=== PATIENT | male | born 1985 | race Caucasian/White ===

== ENCOUNTER 2017-11-27 19:57 | Observation (INO) | payer OTHER ==
[2017-11-27] MEDS ORDERED: ACETAMINOPHEN 500 MG TAB PO PRN (21:17)
[2017-11-27] MEDS ORDERED: ONDANSETRON 4 MG/2 ML VIAL IV PRN (21:17)
[2017-11-27] MEDS ORDERED: IPRATROPIUM BROM 0.5MG/2.5ML NEB PRN (21:17)
[2017-11-27] MEDS ORDERED: ALBUTEROL 2.5 MG/3 ML NEB SOL NEB PRN (21:17)
[2017-11-27 21:22] VITALS: BMI 39.4
[2017-11-27 22:35] LABS: Arterial Blood Carboxyhemoglob 1.9 % (0-1.5); Blood Gas Oxyhemoglobin 91.8 % (94-97); Blood O2 Saturation 95.2 % (92-98.5)
[2017-11-27] MEDS: NA CHLORIDE 0.9% 1,000 ML IV SCH (22:35)
--- NOTE | 2017-11-27 22:56 | P.HP ---
Certification for Inpatient Patient admitted to: Observation With expected LOS: <2 Midnights Practitioner: I am a practitioner with admitting privileges, knowledge of patient current condition, hospital course, and medical plan of care. Services: Services provided to patient in accordance with Admission requirements found in Title 42 Section 412.3 of the Code of Federal Regulations Patient History Date of Service: 11/27/17 Reason for admission: acute respiratory failure History of Present Illness: Mr Alegre is a 31 years old male who start about 5 days ago with cough and sore throat. He went to an urgent care and was diagnosed with an upper respiratory infection. He was prescribed Azithromycin. The patient did not improved his symptoms, in fact, since yesrday he start feeling SOB and fever. His SOB got worse with minimal exercise and sometimes when he talks long sentences. Today he went to [facility]. He was found hypoxic, O2 sat was low 90' s. lab work from [facility] shows normal WBC count, CTA chest reported no PE, no aneurism, and bilateral hilar lymph node. The patient then was transferred to [facility] to be admitted. The patient was afebrile without any distress. Allergies c cor Allergy (Mild, Uncoded 11/27/17 21:21) Itching Home Medications: NK [No Home Meds] 11/27/17 - Past Medical/Surgical History Has patient received pneumonia vaccine in the past: No Diabetic: No -: tobacco abuse -: obesity -: oralia - Family History Family History: Reviewed- Non-Contributory - Social History Smoking Status: Current every day smoker Counseled patient to stop smoking for: less than 10 minutes Smoking therapy provided: Yes Patient receptive to therapy: Yes Alcohol use: Yes CD- Drugs: No Caffeine use: Yes Place of Residence: Home Review of Systems 10-point ROS is otherwise unremarkable Physical Examination - Vital Signs Temperature: 98.2 F Blood Pressure: 136/77 Pulse: 84 Respirations: 18 Pulse Ox (%): 93 - Physical Exam General: Alert, In no apparent distress HEENT: Atraumatic, PERRLA, Mucous membr. moist/pink, EOMI, Sclerae nonicteric Neck: Supple, 2+ carotid pulse no bruit, No LAD, Without JVD or thyroid abnormality Respiratory: Diminished, Crackles/rales (bibasilar crackles, more on the right than left) Cardiovascular: Regular rate/rhythm, Normal S1 S2 Gastrointestinal: Normal bowel sounds, No tenderness Musculoskeletal: No tenderness Integumentary: No rashes Neurological: Normal speech, Normal strength at 5/5 x4 extr, Normal tone, Normal affect Lymphatics: No axilla or inguinal lymphadenopathy Assessment and Plan - Problems (Diagnosis) (1) Acute respiratory failure Current Visit: Yes Status: Acute (2) Obesity (BMI 30-39.9) Current Visit: Yes Status: Acute (3) Tobacco abuse Current Visit: Yes Status: Acute - Plan The patient will be admitted to the hospital due to acute respiratory failure with hypoxia. Diff diagnosis include pnumonitis, Sarcoid, early pneumonia. Will continue with IV steroid, scheduled breathing treatment and empiric abx. So far O2 sat remain stable. Will consult Dr Ureña. - Advance Directives Does patient have a Living Will: No Does patient have a Durable POA for Healthcare: No
[2017-11-27] MEDS: METHYLPREDNISOLONE 40 MG INJ IV SCH (23:15)
[2017-11-27] MEDS ORDERED: Levofloxacin 750mg IV 750 MG/150 ML BAG IV SCH (23:45)
[2017-11-28] MEDS ORDERED: METHYLPREDNISOLONE 40 MG INJ IV SCH
[2017-11-28] MEDS: METHYLPREDNISOLONE 40 MG INJ IV SCH ×2 (05:18→12:22)
[2017-11-28 05:24] LABS: Absolute Lymphocytes (CBC) 0.6 K/uL (0.7-4.9); Absolute Monocytes 0.1 K/uL (0.1-1.3); Absolute Neutrophil 6.7 K/uL (1.8-8.0); Basophils % 0.6 % (0-1.3); Hematocrit 45.4 % (39.6-49.0); Lymphocytes % 7.5 % (15.3-44.8); MCH 28.5 pg (27.0-35.0); MCV 86.3 fL (80-100); MPV 10.7 fL (7.6-11.3); Monocytes % 1.2 % (3.3-12.3); RBC Red Blood Cell Count 5.25 M/uL (4.33-5.43)
[2017-11-28 05:54] LABS: ALT/SGPT 35 IU/L (10-60); AST/SGOT 24 IU/L (10-42); Albumin 3.9 g/dL (3.2-5.5); Alkaline Phosphatase 63 IU/L (42-121); BUN Blood Urea Nitrogen 15 mg/dL (6-20); Bicarbonate 23 mEq/L (21-31); Bilirubin Total 0.3 mg/dL (0.3-1.2); Glomerular Filtration Rate > 90 mL/min (=/>90); Glucose Level 253 mg/dL (65-120); Potassium 4.5 mEq/L (3.6-5.0); Protein, Total 7.1 g/dL (6.0-8.3); Sodium Level 137 mEq/L (135-145)
[2017-11-28 07:02] LABS: Blood Morphology Comment NOT SEEN (NOT SEEN); Platelet Estimate ADEQ; Urine White Blood Cell Casts OK
[2017-11-28] MEDS: NA CHLORIDE 0.9% 1,000 ML IV SCH (08:00)
[2017-11-28] MEDS ORDERED: NICOTINE 21 MG/PAT TD SCH (09:00)
--- NOTE | 2017-11-28 10:24 | P.CNS ---
Date of Consult: 11/28/17 Reason for Consult: Abnormal CT scan and shortness of breath Chief Complaint: Shortness of breath abnormal CT scan History of Present Illness: Patient is 31 years of age heavy smoker a is problems started on Thursday he went to urgent care was complaining of shortness of breath and was treated with a Z- Victor Hugo did well cleared up on vent resisted having some more shortness of breath virus cutting his yd patient went to [facility] was found to be hypoxic was transferred here currently feeling fine no prior history of pulmonary complaints state that he does have some wheezing complains of loud snoring excessive daytime somnolence possible underlying obstructive sleep apnea no other past medical history does not take any medications Allergies c cor Allergy (Mild, Uncoded 11/27/17 21:21) Itching Home Medications: Albuterol Inhaler [Ventolin Inhaler*] 2 puff IH Q6H PRN #1 hfa.aer.ad 11/28/17 - Past Medical/Surgical History Diabetic: No -: tobacco abuse -: obesity -: oralia - Social History Smoking Status: Current every day smoker Alcohol use: Yes CD- Drugs: No Caffeine use: Yes Place of Residence: Home Review of Systems 10-point ROS is otherwise unremarkable Physical Examination Temp Pulse Resp BP Pulse Ox 98.3 F 77 20 116/57 L 93 11/28/17 08:00 11/28/17 08:00 11/28/17 08:00 11/28/17 08:00 11/28/17 08:00 General: Alert, Oriented x3 Neck: Supple Respiratory: Clear to auscultation bilaterally, Normal air movement Cardiovascular: No edema, Regular rate/rhythm Gastrointestinal: Normal bowel sounds, Soft and benign Laboratory Data (last 24 hrs) 11/28/17 05:01: Sodium 137, Potassium 4.5, BUN 15, Creatinine 0.98, Glucose 253 H, Total Bilirubin 0.3, AST 24, ALT 35, Alkaline Phosphatase 63 11/28/17 05:01: WBC 7.3, Hgb 15.0, Hct 45.4, Plt Count 154 - Problems (1) Shortness of breath Current Visit: Yes Status: Acute Plan: Patient was evaluated for shortness of breath and hypoxemia his oxygenation and saturations are now normal vital signs all stable will check is room-air pulse ox he can be discharged home on inhaled bronchodilator and steroid inhaler (2) Abnormal CT scan of lung Current Visit: Yes Status: Acute Plan: Patient is 31 years of age admitted with shortness of breath the started on Thursday he is a heavy smoker no prior history of cardiopulmonary problems he was seen at urgent care treated with Zithromax improved then relapsed again [facility] normal CT scan done did not show any evidence of pulmonary emboli limited visualization brown glass nodules seen in the right upper lobe 7.3 mm small right hilar lymph node measuring 8 mm and in the left hilum also labs all reviewed chemistries unremarkable CBC was also normal including normal Iron I have advised the patient to follow up with me twice him to quit smoking he had a follow-up CT scan in 3 months
--- NOTE | 2017-11-28 11:02 | P.SSS ---
Patient History Date of Service: 11/28/17 Primary Care Provider: None Reason for admission: Shortness of breath abnormal CT scan History of Present Illness: Mr Alegre is a 31 years old male who start about 5 days ago with cough and sore throat. He went to an urgent care and was diagnosed with an upper respiratory infection. He was prescribed Azithromycin. The patient did not improved his symptoms, in fact, since yesrday he start feeling SOB and fever. His SOB got worse with minimal exercise and sometimes when he talks long sentences. Today he went to [place] [facility]. He was found hypoxic, O2 sat was low 90' s. lab work from [place] shows normal WBC count, CTA chest reported no PE, no aneurism, and bilateral hilar lymph node. The patient then was transferred to [facility] to be admitted. The patient was afebrile without any distress. Allergies c cor Allergy (Mild, Uncoded 11/27/17 21:21) Itching Home Medications: Albuterol Inhaler [Ventolin Inhaler*] 2 puff IH Q6H PRN #1 hfa.aer.ad 11/28/17 - Past Medical/Surgical History Has patient received pneumonia vaccine in the past: No Diabetic: No -: tobacco abuse -: obesity -: oralia - Family History Family History: Reviewed- Non-Contributory - Social History Smoking Status: Current every day smoker Alcohol use: Yes CD- Drugs: No Caffeine use: Yes Place of Residence: Home Review of Systems General: As per HPI Physical Examination - Vital Signs Temperature: 98.3 F Blood Pressure: 116/57 Pulse: 77 Respirations: 20 Pulse Ox (%): 93 - Physical Exam General: Alert, In no apparent distress HEENT: Atraumatic, PERRLA, Mucous membr. moist/pink, EOMI, Sclerae nonicteric Neck: Supple, 2+ carotid pulse no bruit, No LAD, Without JVD or thyroid abnormality Respiratory: Clear to auscultation bilaterally, Normal air movement Cardiovascular: Regular rate/rhythm, Normal S1 S2 Gastrointestinal: Normal bowel sounds, No tenderness Musculoskeletal: No tenderness Integumentary: No rashes Neurological: Normal gait, Normal speech, Normal strength at 5/5 x4 extr, Normal tone, Normal affect Lymphatics: No axilla or inguinal lymphadenopathy - Studies Laboratory Data (last 24 hrs) 11/28/17 05:01: Sodium 137, Potassium 4.5, BUN 15, Creatinine 0.98, Glucose 253 H, Total Bilirubin 0.3, AST 24, ALT 35, Alkaline Phosphatase 63 11/28/17 05:01: WBC 7.3, Hgb 15.0, Hct 45.4, Plt Count 154 - Diagnosis (Problem(s)) (1) Abnormal CT scan of lung Current Visit: Yes Status: Acute (2) Obesity (BMI 30-39.9) Current Visit: Yes Status: Acute (3) Shortness of breath Current Visit: Yes Status: Acute (4) Tobacco abuse Current Visit: Yes Status: Acute Treatment Summary: Overall during the hospital stay patient remained stable The patient was initially admitted to the hospital for shortness of breath most likely secondary to asthma exacerbation. Patient does not have any history of asthma as a child or bowel. Patient is a tobacco user who's been using tobacco for 14 years. Was educated extensively on smoking cessation here in the hospital. Patient received DuoNeb steroids and fluids here. On the day of discharge patient went downstairs and had the smoking breaks and came back up. Patient addition educated extensively on smoking cessation. Was saturating 92- 93% on room air and thus was discharged home after consultation with pulmonology. Patient was to follow up with pulmonology in about 1-2 weeks was given a prescription for albuterol as a rescue inhaler and Flonase. - Disposition Disposition: ROUTINE DISCHARGE Condition: GOOD Patient Discharge Instructions: You will need to f/u with PCP in 1 to 2 week post discharge. -You will need a f/u Chest CT in 3 month. You will need to F/ u with Dr Lee in 1 to 2 week post discharge to establish care. New medication. Albuetrol INH PRN for wheezing. Clartin OTC for Allergy. Flonase OTC for Nasal Allergy Diet: Regular Activity: Ad mela
[2017-11-28 12:12] VITALS: O2SAT 91
[2017-11-28 13:00] VITALS: BP 131/61; TEMP 97.5
--- NOTE | 2017-11-29 05:15 | EKG ---
Test Date: 2017-11-27 Test Time: 21:53:39 Tail Sawyer: RT T MEASUREMENT RESULTS: Intervals: Rate: 71 SC: 152 QRSD: 98 QT: 392 QTc: 425 Wilson: P: 54 SC: 152 QRS: 77 T: 64 INTERPRETIVE STATEMENTS: Normal sinus rhythm Normal ECG Compared to ECG 10/31/2016 18:35:20 No significant changes Electronically Signed On 11-29-17 05:14:30 CDT by Forrest Samaniego
== END 2017-11-28 12:28 | disposition home or self-care (01) ==
LOC: 2ND 20:45
PROVIDERS: ADMIT Internal Medicine; ATTEND Internal Medicine
DX: R91.8 Other nonspecific abnormal finding of lung field (principal); R06.02 Shortness of breath; E66.9 Obesity, unspecified; Z68.39 Body mass index [BMI] 39.0-39.9, adult; F17.210 Nicotine dependence, cigarettes, uncomplicated
CPT/HCPCS: 36415; 80053; 82805; 85025; 87040; 93005; 94760; G0378; J2920; J7030